=== PATIENT | male | born 1960 | race Caucasian/White ===

== ENCOUNTER 2017-11-09 14:24 | Emergency (ER) | payer OTHER ==
[2017-11-09] MEDS: SOD CHLORIDE 0.9% 1,000 ML IV (16:26)
[2017-11-09] MEDS: ONDANSETRON 4 MG INJ IV (16:26)
[2017-11-09] MEDS: ONDANSETRON (ODT) 4 MG TAB ODT (18:02)
== END 2017-11-09 18:13 | disposition home or self-care (01) ==
LOC: FTE 14:24
DX: R11.2 Nausea with vomiting, unspecified (principal); T40.4X5A Adverse effect of other synthetic narcotics, initial encounter; I10 Essential (primary) hypertension
CPT/HCPCS: 96374; 99284-25

== ENCOUNTER 2017-12-21 07:54 | Day surgery (SDC) | payer OTHER ==
[2017-12-21] MEDS ORDERED: FENTAnyl 50 MCG/ML VIAL (11:13)
[2017-12-21] MEDS ORDERED: MIDAZOLAM 1 MG/ML 2 ML INJ ×3 (11:13)
== END 2017-12-21 13:56 | disposition home or self-care (01) ==
LOC: GIL 07:54
DX: Z12.11 Encounter for screening for malignant neoplasm of colon (principal); K29.30 Chronic superficial gastritis without bleeding; K44.9 Diaphragmatic hernia without obstruction or gangrene; K21.9 Gastro-esophageal reflux disease without esophagitis; K57.30 Diverticulosis of large intestine without perforation or abscess without bleeding; K64.8 Other hemorrhoids; I10 Essential (primary) hypertension
CPT/HCPCS: 43239; 88305; 88312